=== PATIENT | male | born 1980 | race African-American/Black ===

== ENCOUNTER 2024-04-29 09:52 | Emergency (ER) | payer OTHER, SELFPAY ==
[2024-04-29 10:08] VITALS: BP 146/77; PULSE 95; RESP 18; TEMP 36.6; O2SAT 97
--- NOTE | 2024-04-29 10:54 | ED.EAR ---
HPI - Ear Problem General Chief complaint: Ear Stated complaint: i took a lot of water in my ear Time Seen by Provider: 04/29/24 09:56 Source: patient Mode of arrival: ambulatory Limitations: no limitations History of Present Illness HPI Narrative: This is a 43-year-old male that presents to the emergency department for decreased hearing in the right ear. Reports he thinks he got water in his ear while kayaking. He has not been able to remove it. Denies fevers or drainage. Related Data Allergies Allergy/AdvReac Type Severity Reaction Status Date / Time shellfish derived AdvReac Swelling Verified 04/29/24 10:13 Review of Systems Review of Systems: CONSTITUTIONAL: Denies fever ENT: Denies otalgia. All systems reviewed & are unremarkable except as noted in HPI and below PMFSH Past Medical History Medical History (Updated 04/29/24 @ 11:09 by Gretta Noel PA-C) No active medical problems Social History Social History (Updated 04/29/24 @ 11:09 by Gretta Noel PA-C) Smoking status: Current some day smoker Exam Narrative: GENERAL: Well-appearing, well-nourished, and in no acute distress. HEAD: Normocephalic, atraumatic. EYES: EOMI. ENT: Bilateral TMs pearly boswell non-bulging. Right external auditory canal with cerumen impaction NECK: Supple. No adenopathy or masses. EXTREMITIES: Normal range of motion. No edema. SKIN: Warm, dry, no rash. NEURO: No focal deficits. Alert and oriented x3. PSYCH: Normal mood and affect Course Course Emergency Course: Patient with immediate improvement after removal of ear wax Vital Signs Vital signs: Vital Signs Temperature 97.8 F 04/29/24 10:08 Pulse Rate 95 04/29/24 10:08 Respiratory Rate 18 04/29/24 10:08 Blood Pressure 146/77 H 04/29/24 10:08 Pulse Oximetry 97 04/29/24 10:08 Oxygen Delivery Room Air 04/29/24 10:08 Temperature 97.8 F 04/29/24 10:08 Pulse Rate 95 04/29/24 10:08 Respiratory Rate 18 04/29/24 10:08 Blood Pressure 146/77 H 04/29/24 10:08 Pulse Oximetry 97 04/29/24 10:08 Oxygen Delivery Room Air 04/29/24 10:08 Procedures Ear Wax Removal Right Ear: Ear Wax Removal Date: 04/29/24 Ear Wax Removal Time: 11:08 Results: Re-examined: cerumen removed completely TM Examination: TM(s) intact, normal appearance Ear Canal Exam: atraumatic Patient Tolerated Procedure: well and no complications Complications: no problems Technique: ear canal curetted Medical Decision Making MDM Narrative Medical decision making narrative: Patient presents to the emergency department with decreased hearing in the right ear. Noted to have some earwax in the external auditory canal. This was removed with relief of his symptoms. External auditory canal is atraumatic. His TM is normal. He was instructed to follow-up with his PCP as needed Differential Diagnosis Differential Diagnosis: Otitis externa, serous otitis media, cerumen impaction Vital Signs Vital Signs: Vital Signs Temperature 97.8 F 04/29/24 10:08 Pulse Rate 95 04/29/24 10:08 Respiratory Rate 18 04/29/24 10:08 Blood Pressure 146/77 H 04/29/24 10:08 Pulse Oximetry 97 04/29/24 10:08 Oxygen Delivery Room Air 04/29/24 10:08 Temperature 97.8 F 04/29/24 10:08 Pulse Rate 95 04/29/24 10:08 Respiratory Rate 18 04/29/24 10:08 Blood Pressure 146/77 H 04/29/24 10:08 Pulse Oximetry 97 04/29/24 10:08 Oxygen Delivery Room Air 04/29/24 10:08 Critical Care Time Critical Care Time Critical Care Time: No Discharge Plan Discharge Clinical Impression: Impacted cerumen of right ear Patient Disposition: Home, Self-Care Condition: Improved Additional Instructions: Return if symptoms worsen or concerns: any redness, swelling, pain or fever over 101 Follow up with primary care as needed Follow-up/Referrals: Sultana,CONCHA Brush [Primary Care Provider]
[2024-04-29 11:00] VITALS: BP 123/72; PULSE 85; RESP 18; O2SAT 98
== END 2024-04-29 11:05 | disposition home or self-care (01) ==
LOC: ANHED 11:05
PROVIDERS: Emergency Provider Physician Assistant; PCP Registered Nurse
DX: H61.21 Impacted cerumen, right ear (principal)
CPT/HCPCS: 69210; 99282